=== PATIENT | male | born 2000 | race Caucasian/White ===

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

== ENCOUNTER 2024-04-28 08:12 | Day surgery (SDC) | payer OTHER, SELFPAY ==
[2024-04-28] VITALS (10 sets, daily range): BP systolic 117–156; BP diastolic 74–111; PULSE 51–65; RESP 16; TEMP 36.3–36.5; O2SAT 94–100; BMI 27.1
--- NOTE | 2024-04-28 08:33 | PCM.PRE.AN2 ---
ASA Classification* ASA Classification ASA Classification: 2 Assessment & Plan Anesthesia* Anesthesia Assessment Anesthesia Assessment: Discussed sedation and/or anesthesia options, risks, benefits, and alternatives with patient/parents/legal guardian/POA. Questions invited. The patient/parents/legal guardian/POA seems to understand and agrees to proceed with anesthesia plan. Reviewed the physical assessment, medical history, allergy history and patient home medications list prior to surgery/procedure/anesthetic and documented any changes. Performed airway and anesthesia risk assessments. Anesthesia Type Anesthesia Type: General (see written pre anesthesia record for full assessment) Anesthesia Focused Assessment* Airway Assessment Mouth opens: >3 cm Mallampati Score: II Focused Labs Anesthesia Preop lab: CBC WBC 4.1 K/mm3 (4.4-11.0) L 05/08/18 00:15 RBC 4.19 M/mm3 (4.6-6.2) L 05/08/18 00:15 Hgb 13.3 g/dl (13.0-16.5) 05/08/18 00:15 Hct 36.8 % (40-54) L 05/08/18 00:15 Plt Count 164 K/mm3 (150-450) 05/08/18 00:15 CHEMISTRY Potassium 3.4 mmol/L (3.5-5.1) L 05/08/18 00:15 Sodium 133 mmol/L (136-145) L 05/08/18 00:15 BUN 17 mg/dL (7-18) 05/08/18 00:15 Creatinine 1.31 mg/dL (0.70-1.30) H 05/08/18 00:15 Glucose 99 mg/dL (74-106) 05/08/18 00:15 COAG Pre-Assessment Diagnosis/Proposed Procedure Planned Operative Procedure(s): I&D SEPTAL HEMATOMA Anesthesia History 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 When Was Last Pacemaker Check QUESTION #4 FULL TEXT: You/Your Family Experience fever (hyperthermia) with Anesthesia Last Oral Intake Last Oral intake: Last Oral Intake NPO since Meds taken in AM with sips of water? 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 Female No 04/25/24 10:36 HX of Motion Sickness No 04/25/24 10:36 HX of N/V After Surgery No 04/25/24 10:36 Non-Smoker No 04/25/24 10:36 Duration of Surgery greater No 04/25/24 10:36 than 60 minutes Number of Risk Factors PONV Score Respiratory Assessment Respiratory Assessment - dubbing machine operator: Respiratory Tract Infection Hx - dubbing machine operator Hx Respiratory Tract Infection No 04/25/24 10:36 STOP Sleep Apnea STOP Sleep Apnea - dubbing machine operator: STOP Sleep Apnea - dubbing machine operator Hx Hypertension No 04/25/24 10:36 Hx Sleep Apnea No 04/25/24 10:36 CPAP BIPAP Do you snore loudly (louder No 04/25/24 10:36 than talking or can be heard Do you often feel tired/ No 04/25/24 10:36 fatigued/ sleepy during daytime? Has anyone observed you stop No 04/25/24 10:36 breathing during sleep? STOP Results Negative 04/25/24 10:36 QUESTION #5 FULL TEXT : Do you snore loudly (louder than talking or can be heard through closed doors)? 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 Specify any problems Hx of Preganancy in last 3 N/A 04/25/24 10:36 Months Nurse Filling Out Transfusion DSCHRIBER 04/25/24 10:36 & Questions: Date: 04/25/24 04/25/24 10:36 Time: 10:37 04/25/24 10:36 Patient unable to answer at this time (ie. confused, unrespo /Reproduction History /Reproductive History - dubbing machine operator: /Reproductive Hx- dubbing machine operator Hx Now No 04/25/24 10:36 Gestational Age (in weeks): EDC: Hx Hx Para Hx Section SAB No 04/25/24 10:36 Active Medications Active Medications: Current Medications Generic Name Dose Route Start Last Admin Trade Name Freq PRN Reason Stop Dose Admin Lactated Ringer's 1,000 mls @ 15 mls/hr 04/28/24 08:30 IV .Q48H MARCELLA PFSH Medical History Marijuana use Alcohol use History of steroid therapy Injury of head and neck Current every day vaping Home Medications ?Medication ?Instructions ?Recorded ?Last Taken ?Type acetaminophen 325 mg tablet 650 mg PO Q4H PRN pain 04/25/24 Unknown History (Tylenol) doxycycline monohydrate 100 mg 100 mg PO BID 04/25/24 Unknown History capsule Allergy/AdvReac Type Severity Reaction Status Date / Time Penicillins Allergy Hives Verified 04/25/24 10:34 sulfamethoxazole (From Allergy Itching Verified 04/25/24 10:34 Bactrim) trimethoprim (From Bactrim) Allergy Itching Verified 04/25/24 10:34 Surgical History History of wisdom tooth extraction Hx of myringotomy History of tonsillectomy and adenoidectomy Hx of foot surgery Social History Smoking Status: Current some day smoker tobacco type: e-cigarettes Review of Systems (Anesthesia) ROS Narrative System reviewed and no additional complaints, except as documented.
[2024-04-28] MEDS: Lactated Ringers 1,000 ML 15 ML IV (08:46)
[2024-04-28] MEDS: Oxymetazoline 0.05% 1 SPRAY SPRAY.BTL 3 SPRAY NASAL ×2 (08:52→10:05)
--- NOTE | 2024-04-28 09:36 | PCM.DC.SUM ---
Providers Primary Care Physician: Dr. Karrie Carey DO Medications at Discharge Home Medications acetaminophen 325 mg tablet (Tylenol) 650 mg PO Q4H PRN pain 04/25/24 doxycycline monohydrate 100 mg capsule 100 mg PO BID 04/25/24 Weight / BMI Weight Weight: 86 kg Body Mass Index (BMI) 27.1 D/C Instructions Discharge Diet: No restrictions Additional Instructions: no nose blowing start saline nasal spray...3 sprays each nostril three times a day continue antibiotics Please Follow Up With: Eze Roblero MD When: 1 week Meaningful Use Info Meaningful Use Meaningful Use Diagnoses (Choose all that apply): None applicable Ischemic Stroke Statin Dosing Therapy Reference: STATIN DOSE THERAPY REFERENCE: * Patients > 75 years receive moderate or high dose statin therapy. * Patients 75 years or YOUNGER should receive HIGH intensity statin dose unless contraindicated. You will be required to document reason for non-treatment if statin daily dose does not meet guidelines. HIGH DOSE STATIN THERAPY DAILY Atorvastatin > than or = to 40 mg Rosuvastatin > than or = to 20 mg Amlodipine + Atorvastatin > than or = to 2.5/40 mg Ezetimibe + Simvastatin 10/80 mg Simvastatin 80mg Discharge Plan Admission Attending Provider: Harsh Roblero Primary Care Provider: Karrie Carey Instructions Print Language: Angolan Discharge Orders/Prescriptions Prescriptions: No Action doxycycline monohydrate 100 mg capsule 100 mg PO BID acetaminophen [Tylenol] 325 mg tablet 650 mg PO Q4H PRN (Reason: pain) Referrals / Follow Up: Karrie Carey DO [Primary Care Provider] - Disposition Disposition (needs filled in before D/C Order can be placed): Home, Self Care
--- NOTE | 2024-04-28 09:38 | PCM.OPRPT ---
Report of Operation Date of Procedure: 04/28/24 Pre-Operative Diagnosis: septal hematoma Post-Operative Diagnosis: same Surgery/Procedure Performed:: incision and drainage septal hematoma Surgeon: Harsh Roblero Type of Anesthesia: General Anesthesiologist: Frandy Gutiérrez Estimated Blood Loss (mL): minimal Description of Procedure: The patient was taken to the operating on 04/28/2024. He was placed in the supine position on the operating room table. He is given sufficient general endotracheal anesthesia. The head of bed was elevated 30 degrees. The patient was draped sterilely. 1% lidocaine with epinephrine injected into the septum bilaterally. After sufficient vasoconstriction, a small incision was made at the mucocutaneous junction on the left. Hematoma was evacuated from the cavity with suction. I then irrigated the hematoma cavity with saline. All irrigant was suctioned from the nasopharynx. I then closed the incision with 4-0 chromic. Diamond nasal splints were applied to each side of the septum and sewn through and through with 3-0 silk. The patient was then awoken and brought to the recovery room in stable condition. Blood loss minimal, replacement none. Sponge, needle, and instrument count were correct at the end of the procedure.
[2024-04-28] MEDS: Lidocaine 1% /Epi 1:100 (20ml) 20 ML Vial (10:00)
[2024-04-28] MEDS: Bacitracin 500 UNITS/GM PACKET (10:04)
--- NOTE | 2024-04-28 10:19 | PCM.POST.ANE ---
Anesthesia: Postop Eval I Current Vital Signs Temperature: 97.7 F Pulse Rate: 64 Blood Pressure: 133/77 Respiratory Rate: 16 Pulse Ox: 100 Oxygen Delivery Method: Room Air Assessment Airway patent: Yes Spontaneous unlabored respirations: Yes Mental status: Awake and Calm nausea: No Vomiting: No Anesthesia Complication: No Fluid Hydration Crystalloid volume administer (ml): 700 Total IV fluid infused: 700 Progress Note Anesthesia document: Postop Eval 1 completed: Yes
[2024-04-28] MEDS: Acetaminophen 325 MG Tablet 650 MG PO (11:47)
[2024-04-28] MEDS: oxyCODONE 5 MG Tablet 10 MG PO (11:47)
--- NOTE | 2024-04-28 12:44 | PCM.POSTANE2 ---
Anesthesia Postop Eval I Sum Postop Eval Completion status Anesthesia document: Postop Eval 1 completed: Yes Anesthesia Postop Eval I Summary Anesthesia Postop Eval I Summary: Anesthesia Postop Eval I: Assessment Summary Airway patent Yes 04/28/24 10:22 Spontaneous unlabored Yes 04/28/24 10:22 respirations Mental status Awake,Calm 04/28/24 10:22 nausea No 04/28/24 10:22 Vomiting No 04/28/24 10:22 Anesthesia Postop Eval I: Fluid Summary Crystalloid volume administer 700 04/28/24 10:22 (ml) Colloids volume administered ( ml) Blood Product volume administered (ml) Total IV fluid infused 04/28/24 10:22 Anesthesia Postop Eval I: Summary Notes Anesthesia Complication No 04/28/24 10:22 Anesthesia Complication Comment: Post-operative progress note Anesthesia: Postop Eval II Evaluation Mental status: Awake and Calm Pain Level: 3 nausea: No Vomiting: No Complications Anesthesia Complication: No
== END 2024-04-28 12:22 | disposition home or self-care (01) ==
LOC: SDC 08:15 → AC 08:16
PROVIDERS: PCP Internal Medicine; Referring Provider Otolaryngology; Visit Provider Otolaryngology
PROC: (CPT 30100; principal; 2024-04-28 10:10)
DX: S00.33XA Contusion of nose, initial encounter (principal); F17.200 Nicotine dependence, unspecified, uncomplicated; X58.XXXA Exposure to other specified factors, initial encounter
CPT/HCPCS: 30020; 00160; J7120; J2405